=== PATIENT | female | born 1945 | race Caucasian/White ===

== ENCOUNTER → 2016-11-22 | Outpatient (CLI) | payer MEDICARE | LOC: ECHO 09:37 | DX: I10 Essential (primary) hypertension (principal); I48.1 Persistent atrial fibrillation; I50.32 Chronic diastolic (congestive) heart failure; I51.7 Cardiomegaly; I35.0 Nonrheumatic aortic (valve) stenosis; I07.1 Rheumatic tricuspid insufficiency; I05.9 Rheumatic mitral valve disease, unspecified; Z79.899 Other long term (current) drug therapy | CPT/HCPCS: ECHO; 93306; 94060; 94729 ==

== ENCOUNTER 2016-12-19 21:37 | Emergency (ER) | payer MEDICARE ==
[2016-12-19 23:10] LABS: HEMOGLOBIN 10.5 gm/dl (12.3-15.3); RED BLOOD COUNT 4.5 M/UL (4.00-5.10); WHITE BLOOD COUNT 13.9 K/UL (4.5-11.0)
== END 2016-12-20 01:10 | disposition home or self-care (01) ==
LOC: ER1 21:37
PROVIDERS: Family Medicine
DX: R10.10 Upper abdominal pain, unspecified (principal); R09.81 Nasal congestion; F41.9 Anxiety disorder, unspecified; N18.9 Chronic kidney disease, unspecified; I12.9 Hypertensive chronic kidney disease with stage 1 through stage 4 chronic kidney disease, or unspecified chronic kidney disease; J44.9 Chronic obstructive pulmonary disease, unspecified; Z79.01 Long term (current) use of anticoagulants; Z88.5 Allergy status to narcotic agent
CPT/HCPCS: 36415; 71010; 80053; 82550; 82553; 83690; 83874; 84484; 85025; 85610; 85730; 93005; 96374; 99284; J2405

== ENCOUNTER → 2021-04-28 | Outpatient (CLI) | payer MEDICARE, OTHER ==
[~2021-04-28] MED LIST: ACCU-CHEK1 EAC3 MC; ACCU-CHEK1 EACH MC; AMIODARONE HCL200 MG PO; ATORVASTATIN CA20 MG PO; AUGMENTIN 500-500 MG PO; BUSPAR 5MG TABLE5 MG PO; CORDARONE 200M200 MG PO; COZAAR100 MG PO; FUROSEMIDE80 MG PO; GABAPENTIN100 MG PO; GLUCOSE TEST S1 EACH MC; GLUCOTROL5 MG PO; IMDUR ER TAB 6060 MG PO; K-DUR TAB 10 M10 MEQ PO; LASIX20 MG PO; LASIX80 MG PO; LOPRESSOR 50 MG50 MG PO; LORTAB 5-325 M1 EACH PO; METOLAZONE10 MG PO; NEXIUM40 MG PO; NORCO 5-325 TA1 EACH PO; NORVASC2.5 MG PO; PRAVACHOL20 MG PO; PREDNISONE20 MG PO; PROTONIX 20 MG20 MG PO; RANITIDINE HCL150 MG PO; TIZANIDINE HCL4 M1 PO; URSODIOL250 MG PO; WARFARIN SODIUM4 MG PO; ZANAFLEX4 MG PO; ZANTAC150 MG PO; ZOFRAN ODT4 MG PO; ZOFRAN4 MG PO
== END ==
LOC: EXRD 10:05
DX: R06.02 Shortness of breath (principal); R09.89 Other specified symptoms and signs involving the circulatory and respiratory systems; I65.23 Occlusion and stenosis of bilateral carotid arteries; Z79.899 Other long term (current) drug therapy
CPT/HCPCS: 93880; 94060; 94729

== ENCOUNTER → 2022-01-10 | Outpatient (CLI) | payer OTHER | LOC: HEART 5 08:43 | DX: R06.02 Shortness of breath (principal); Z79.899 Other long term (current) drug therapy | CPT/HCPCS: 94060; 94729 ==